=== PATIENT | male | born 1970 | race Native Hawaiian/Other Pacific Islander ===

== ENCOUNTER 2022-11-24 07:23 | Day surgery (SDC) | payer OTHER, SELFPAY ==
[2022-11-24] MEDS: LACTATED RINGERS 1000 ML 1,000 ML 100 ML IV (07:45)
[2022-11-24 07:53] VITALS: BMI 32.5
[2022-11-24 07:57] VITALS: BP 147/98; PULSE 62; RESP 16; TEMP 36.7; O2SAT 99
[2022-11-24] MEDS: SODIUM CHLORIDE 0.9 % (FLUSH) 10 ML SYRINGE IVF (08:09)
--- NOTE | 2022-11-24 08:40 | PM.GSPRC ---
Operative Note Pre-op diagnosis: 1. Left facial cyst. Post-op diagnosis: Same Type of Procedure: 1. Excision of left facial cyst. Indications: 51-year-old male was seen in clinic with a left facial mass that was present for several years. The mass has grown in size. Patient attempted to squeeze it and small amount of fluid came out. However, the cyst increased in size. on clinical exam patient had slightly protuberant subdermal mass that was measuring approximately 2 cm in diameter. Given patient's clinical history and the location of the cyst, excision in the operating room was recommended. The procedure was discussed in detail. The risks associated procedure including infection, bleeding, and injury to underlying structures such as parotid gland or facial nerve were all discussed with the patient, and he agreed to proceed. Procedure Description: After discussing the risks and benefits of the procedure, the patient signed informed consent.? The operative site was marked and the patient was brought to the operating room and placed on the operating table in supine position.? Care was taken to pad the patient's pressure points.?? The patient was then sedated by anesthesia.?? The operative site was then prepped and draped in the usual sterile fashion.? A time-out was then performed. local anesthetic was injected at the surgical site. A slightly oblique elliptical skin incision was made with a scalpel. Sub dermis and subcutaneous fat were dissected with a scalpel and cautery. The cyst was attached to the superficial fascia. It was shaved off the fascia with a scalpel. Hemostasis was achieved with cautery. The cyst was measuring 1.2 x 1.5 cm. It was sent to pathology. The incision was then closed in layers with interrupted 3-0 Vicryl sutures. The skin was closed with a running 4-0 Monocryl stitch. Exofin was placed over the incision. ? The patient was then woken and transported to the recovery area in stable condition. ? The patient tolerated the procedure well. Findings: Benign appearing cyst excised from the left face. Anesthesia: MAC and local Surgeon: Katarina Molina MD Estimated blood loss (mL): 3 Additional Specimen Information: 1. Left facial cyst. Condition: stable Disposition: same day Date of procedure: 11/24/22
[2022-11-24] MEDS: CEFAZOLIN 2 GM INJ IVP (09:01)
[2022-11-24] MEDS: BUPIVACAINE 0.25% 30 ML INJECTION (09:27)
[2022-11-24 09:37] VITALS: BP 127/76; PULSE 62; RESP 16; TEMP 36.4; O2SAT 99
--- NOTE | 2022-11-24 09:40 | W.ANESCHARGE ---
Anesthesia Charges Start Date/Time Anesthesia Start Date: 11/24/22 Anesthesia Start Time: 08:53 Stop Date/Time Anesthesia Stop Date: 11/24/22 Anesthesia Stop Time: 09:37
[2022-11-24 09:45] VITALS: BP 129/79; PULSE 63; RESP 16; O2SAT 99
[2022-11-24 10:00] VITALS: BP 130/74; PULSE 63; RESP 16; O2SAT 99
== END 2022-11-24 10:39 | disposition home or self-care (01) ==
PROVIDERS: PCP Family Medicine; Visit Provider Surgery
PROC: (CPT 11443; principal; 2022-11-24 08:30)
DX: L72.0 Epidermal cyst (principal)
CPT/HCPCS: 11443; 12051; 00300; 88304; T1013; J0665; J0690; J1100; J2250; J2405; J2704; J3010; J7120